=== PATIENT | female | born 1930 | race Caucasian/White ===

== ENCOUNTER 2017-09-02 08:21 | Outpatient (CLI) | payer MEDICARE, OTHER | END 2017-09-02 08:22 | disposition home or self-care (01) | LOC: BICMAMMO 08:21 | PROVIDERS: ATTEND Internal Medicine | DX: Z12.31 Encounter for screening mammogram for malignant neoplasm of breast (principal); Z13.820 Encounter for screening for osteoporosis; Z12.89 Encounter for screening for malignant neoplasm of other sites; Z78.0 Asymptomatic menopausal state; M85.859 Other specified disorders of bone density and structure, unspecified thigh; M85.88 Other specified disorders of bone density and structure, other site; M47.896 Other spondylosis, lumbar region | CPT/HCPCS: 72100; 77063; 77067; 77080 ==

== ENCOUNTER 2018-09-04 09:07 | Outpatient (CLI) | payer MEDICARE ==
--- NOTE | 2018-09-04 09:47 | MMO ---
Bilateral MAMMO Bilat Screen [facility]. CLINICAL HISTORY: Patient is 88 years old and is seen for screening. The patient has no family history of breast cancer. The patient has no personal history of cancer. VIEWS: The views performed were: bilateral craniocaudal with tomosynthesis and bilateral mediolateral oblique with tomosynthesis. FILMS COMPARED: The present examination has been compared to prior imaging studies performed at [facility] on 09/02/2017, and at [facility] on 05/24/2016. MAMMOGRAM FINDINGS: The breasts are almost entirely fat. There are benign appearing calcifications seen in both breasts. There are no suspicious masses, suspicious calcifications, or new areas of architectural distortion. IMPRESSION: THERE IS NO MAMMOGRAPHIC EVIDENCE OF MALIGNANCY. A ROUTINE FOLLOW-UP MAMMOGRAM IN 1 YEAR IS RECOMMENDED. THE RESULTS OF THIS EXAM WERE SENT TO THE PATIENT. ACR BI-RADS Category 2 - Benign finding MAMMOGRAPHY NOTE: 1. A negative mammogram report should not delay a biopsy if a dominant of clinically suspicious mass is present. 2. Approximately 10% to 15% of breast cancers are not detected by mammography. 3. Adenosis and dense breasts may obscure an underlying neoplasm.
== END 2018-09-04 09:08 | disposition home or self-care (01) ==
LOC: BICMAMMO 09:07
PROVIDERS: ATTEND Internal Medicine
DX: Z12.31 Encounter for screening mammogram for malignant neoplasm of breast (principal)
CPT/HCPCS: 77063; 77067

== ENCOUNTER 2018-10-20 08:06 | Outpatient (CLI) | payer MEDICARE, OTHER ==
--- NOTE | 2018-10-20 08:35 | ULT ---
US Abdominal Aorta History: Aortic aneurysm screening Comparison: None. Findings: Real-time grayscale, color, and spectral analysis of the abdominal aorta was performed. Extensive atherosclerotic plaque throughout the aorta. Proximal aorta measures up to 1.9 cm. The mid aorta measures up to 1.9 cm. The distal aorta measures up to 1.7 cm. No dilatation of the common iliac arteries. Impression: Extensive atherosclerotic plaque without aneurysmal dilatation.
== END 2018-10-20 08:07 | disposition home or self-care (01) ==
LOC: BICULT 08:06
PROVIDERS: ATTEND Internal Medicine
DX: Z13.6 Encounter for screening for cardiovascular disorders (principal); I70.0 Atherosclerosis of aorta
CPT/HCPCS: 76775

== ENCOUNTER 2019-10-05 08:29 | Outpatient (CLI) | payer MEDICARE, OTHER ==
--- NOTE | 2019-10-05 09:02 | BD ---
EXAM: DEXA bone density examination HISTORY: 89-year-old postmenopausal female for screening COMPARISON: None FINDINGS: L1--bone mineral density 0.893 g/sq cm; T score -0.9 L2--bone mineral density 1.071 g/sq cm; T score 0.4 L3--bone mineral density 1.052 g/sq cm; T score -0.3 L4--bone mineral density 0.993 g/sq cm; T score -0.6 Total L1-L4--bone mineral density 1.003 g/sq cm; T score -0.4 Left femoral neck--bone mineral density0.653; T score -1.8 Total proximal left femur--bone mineral density 0.722; T score -1.8 IMPRESSION: Osteopenia. This patient has a 10 year WHO fracture risk of a major osteoporotic fracture of 13% and of a hip fracture of 4.0%.
--- NOTE | 2019-10-05 09:03 | MMO ---
Bilateral MAMMO Bilat Screen [facility]. CLINICAL HISTORY: Patient is 89 years old and is seen for screening. The patient has no family history of breast cancer. The patient has no personal history of cancer. VIEWS: The views performed were: bilateral craniocaudal with tomosynthesis and bilateral mediolateral oblique with tomosynthesis. FILMS COMPARED: The present examination has been compared to prior imaging studies performed at [facility] on 09/02/2017 and 09/04/2018, and at [facility] on 05/24/2016. This study has been interpreted with the assistance of computer-aided detection. MAMMOGRAM FINDINGS: The breasts are almost entirely fat. There are stable benign appearing calcifications seen in both breasts. There are no suspicious masses, suspicious calcifications, or new areas of architectural distortion. IMPRESSION: THERE IS NO MAMMOGRAPHIC EVIDENCE OF MALIGNANCY. A ROUTINE FOLLOW-UP MAMMOGRAM IN 1 YEAR IS RECOMMENDED. THE RESULTS OF THIS EXAM WERE SENT TO THE PATIENT. ACR BI-RADS Category 2 - Benign finding MAMMOGRAPHY NOTE: 1. A negative mammogram report should not delay a biopsy if a dominant of clinically suspicious mass is present. 2. Approximately 10% to 15% of breast cancers are not detected by mammography. 3. Adenosis and dense breasts may obscure an underlying neoplasm. Reported by: FITO OLSON MD Electonically Signed: [id number]
== END 2019-10-05 08:30 | disposition home or self-care (01) ==
LOC: BICMAMMO 08:29
PROVIDERS: ATTEND Internal Medicine
DX: Z12.31 Encounter for screening mammogram for malignant neoplasm of breast (principal); Z13.820 Encounter for screening for osteoporosis; M85.852 Other specified disorders of bone density and structure, left thigh; Z78.0 Asymptomatic menopausal state
CPT/HCPCS: 77063; 77067; 77080

== ENCOUNTER 2020-12-01 14:23 | Inpatient (IN) | payer MEDICARE ==
[2020-12-01 14:46] LABS: #Basophils 0.1 thou/uL (0.0-0.2); #Eosinphils 0.1 thou/uL (0.0-0.7); #Lymphocytes 0.9 thou/uL (1.20-3.40); #Monocytes 0.6 thou/uL (0.11-0.59); #Neutrophils 3.7 thou/uL (1.40-6.50); %Basophils 1.6 % (0.0-1.0); %Eosinophils 1.5 % (0.0-10.0); %Lymphocytes 16.7 % (21.0-51.0); %Monocytes 11.5 % (0.0-10.0); %Neutrophils 68.7 % (42.0-75.0); Hemoglobin 13.6 g/dL (12.0-16.0); Mean Corpuscular Volume 90.6 fL (78.0-98.0); Mean Platelet Volume 9.2 fL (7.4-10.4); Platelet Count 166 thou/uL (130-400); RBC Distribution Width 12.8 % (11.5-14.5); White Blood Cell (WBC) Count 5.4 thou/uL (4.8-10.8)
[2020-12-01] MEDS ORDERED: Atropine Sulfate 1 mg/10 ml Syringe ONE (15:04)
[2020-12-01 15:07] LABS: ALT (SGPT) 251 U/L (8-55); AST (SGOT) 410 U/L (5-34); Albumin 3.7 g/dL (3.4-4.8); Alkaline Phosphatase 118 U/L (40-110); Anion Gap 14 mmol/L (10-20); BUN (Urea Nitrogen) 22 mg/dL (9.8-20.1); Bilirubin, Total 0.7 mg/dL (0.2-1.2); Calc. Creatinine Clearance 0 mL/min (70-130); Calcium 9.1 mg/dL (7.8-10.44); Carbon Dioxide 26 mmol/L (23-31); Chloride 99 mmol/L (98-107); Glucose 136 mg/dL (83-110); Potassium 6.1 mmol/L (3.5-5.1); Protein, Total 6.7 g/dL (5.8-8.1); Sodium 133 mmol/L (136-145)
[2020-12-01] MEDS ORDERED: DOPamine 400 MG/D5W 250 ML 250 ML ONE (15:17)
[2020-12-01] MEDS ORDERED: Insulin Regular 300 UNITS/3 ML VIAL ONE (15:18)
[2020-12-01] MEDS ORDERED: Calcium Chloride 1 GM/10 ML Abboject SYRINGE ONE (15:18)
[2020-12-01] MEDS ORDERED: Dextrose 50% Abboject 50 ML SYRINGE ONE (15:18)
[2020-12-01] MEDS ORDERED: Albuterol Sulfate 2.5 mg/3 ml Neb ONE (15:33)
[2020-12-01] MEDS ORDERED: Ondansetron PF 4 MG/2 ML Vial ONE (15:54)
[2020-12-01] MEDS ORDERED: Acetaminophen 325 MG TAB PO PRN (15:55)
[2020-12-01] MEDS ORDERED: Ondansetron PF 4 MG/2 ML Vial IVP PRN (15:55)
[2020-12-01 16:56] LABS: SARS-CoV-2 NAA Rapid Test Not Detected (NotDetected)
[2020-12-01 18:09] LABS: Troponin I Less than 0.010 ng/mL (< 0.028)
[2020-12-01 18:19] LABS: Anion Gap 10 mmol/L (10-20); BUN (Urea Nitrogen) 23 mg/dL (9.8-20.1); Calc. Creatinine Clearance 13 mL/min (70-130); Carbon Dioxide 25 mmol/L (23-31); Chloride 102 mmol/L (98-107); Glucose 205 mg/dL (83-110); Potassium 4.8 mmol/L (3.5-5.1); Sodium 132 mmol/L (136-145)
[2020-12-01 18:58] LABS: Bacteria/HPF 1+ HPF (None Seen); Bilirubin Negative (Negative); Blood, Urine Negative (Negative); Clarity Turbid (Clear); Glucose, Urine (Dipstick) 200 mg/dL (Negative); Ketone, Urine Negative (Negative); Leukocyte Negative Leu/uL (Negative); Nitrite Negative (Negative); Protein, Urine (Dipstick) 30 mg/dL (Neg-Trace); RBC/HPF 0-3 HPF (0-3); Specific Gravity, Urine 1.014 (1.002-1.036); Squamous Epithelial 0-3 HPF (0-3); Urobilinogen Normal mg/dL (Less than 2); WBC/HPF 0-3 HPF (0-3); pH, Urine 5.5 (5.0-9.0)
[2020-12-01] MEDS: Sodium Chloride 0.9% 1,000 ML IV SCH ×2 (20:00→23:56)
[2020-12-01] MEDS ORDERED: Famotidine/PF 20 mg/2ml Vial SLOW IVP SCH (21:00)
[2020-12-01 21:28] LABS: Troponin I 0.016 ng/mL (< 0.028)
[2020-12-01] MEDS: DOPamine 400 MG/D5W 250 ML 250 ML IVPB SCH (23:55)
[2020-12-02 00:45] VITALS: BMI 26.2
[2020-12-02] MEDS ORDERED: traMADol HCl 50 MG TAB PO SCH (00:45)
[2020-12-02 05:25] LABS: Anion Gap 10 mmol/L (10-20); BUN (Urea Nitrogen) 22 mg/dL (9.8-20.1); Calc. Creatinine Clearance 35 mL/min (70-130); Calcium 9.6 mg/dL (7.8-10.44); Carbon Dioxide 26 mmol/L (23-31); Chloride 102 mmol/L (98-107); Glucose 117 mg/dL (83-110); Potassium 4.7 mmol/L (3.5-5.1); Sodium 133 mmol/L (136-145)
[2020-12-02 05:32] LABS: Band 1 % (5-11); Eosinophils 1 % (0-10); Hemoglobin 12.4 g/dL (12.0-16.0); Lymphocytes 11 % (21-51); MDiff Complete? YES; Mean Corpuscular HGB CONC 33.5 g/dL (32.0-36.0); Mean Corpuscular Hemoglobin 30.2 pg (27.0-31.0); Mean Corpuscular Volume 90.1 fL (78.0-98.0); Monocytes 6 % (0-10); Neutrophil 78 % (42-75); Platelet Count 154 thou/uL (130-400); Platelet Morphology Comment Appears Adequate; RBC Distribution Width 12.6 % (11.5-14.5); RBC Morphology Normal; Reactive Lymphocytes 3 % (0-10); Red Blood Cell (RBC) Count 4.11 mill/uL (4.20-5.40); White Blood Cell (WBC) Count 9.2 thou/uL (4.8-10.8)
[2020-12-02 12:06] LABS: ALT (SGPT) 163 U/L (8-55); AST (SGOT) 121 U/L (5-34); Albumin 3.6 g/dL (3.4-4.8); Alkaline Phosphatase 90 U/L (40-110); Bilirubin, Direct 0.3 mg/dL (0.1-0.3); Bilirubin, Total 0.7 mg/dL (0.2-1.2); Protein, Total 6.8 g/dL (5.8-8.1)
[2020-12-02] MEDS: Sodium Chloride 0.9% 1,000 ML IV SCH (16:12)
[2020-12-02] MEDS: Famotidine/PF 20 mg/2ml Vial SLOW IVP SCH (20:36)
[2020-12-03] MEDS: DOPamine 400 MG/D5W 250 ML 250 ML IVPB SCH (00:42)
[2020-12-03] MEDS: Sodium Chloride 0.9% 1,000 ML IV SCH ×4 (00:43→21:11)
[2020-12-03 10:13] LABS: ALT (SGPT) 117 U/L (8-55); AST (SGOT) 66 U/L (5-34); Albumin 3.6 g/dL (3.4-4.8); Alkaline Phosphatase 88 U/L (40-110); Anion Gap 13 mmol/L (10-20); BUN (Urea Nitrogen) 14 mg/dL (9.8-20.1); Bilirubin, Total 0.7 mg/dL (0.2-1.2); Calc. Creatinine Clearance 46 mL/min (70-130); Calcium 8.7 mg/dL (7.8-10.44); Carbon Dioxide 23 mmol/L (23-31); Chloride 107 mmol/L (98-107); Globulin 2.9 g/dL (2.4-3.5); Glucose 132 mg/dL (83-110); Potassium 4.2 mmol/L (3.5-5.1); Protein, Total 6.5 g/dL (5.8-8.1); Sodium 139 mmol/L (136-145)
[2020-12-03] MEDS ORDERED: Cefepime 1 GM in Sodium Chloride 0.9% 100 ML IVPB SCH (21:00)
[2020-12-03 22:12] LABS: Bacteria/HPF None Seen HPF (None Seen); Bilirubin Negative (Negative); Blood, Urine Trace (Negative); Clarity Clear (Clear); Glucose, Urine (Dipstick) Normal (Negative); Ketone, Urine Negative (Negative); Leukocyte Negative Leu/uL (Negative); Mucous/LPF Rare LPF (<2+); Nitrite Negative (Negative); Protein, Urine (Dipstick) Negative (Neg-Trace); RBC/HPF 0-3 HPF (0-3); Specific Gravity, Urine 1.014 (1.002-1.036); Squamous Epithelial 0-3 HPF (0-3); Urobilinogen Normal mg/dL (Less than 2); pH, Urine 5.5 (5.0-9.0)
[2020-12-03 22:13] LABS: Urine Culture Reflex Yes Yes
[2020-12-03] MEDS: Cefepime 1 GM in Sodium Chloride 0.9% 100 ML IVPB SCH (22:18)
[2020-12-03] MEDS: Vancomycin 1 GM in Premix Bag 1 BAG IVPB SCH (22:18)
[2020-12-03] MEDS: Famotidine/PF 20 mg/2ml Vial SLOW IVP SCH (22:19)
[2020-12-04 05:06] LABS: Anion Gap 10 mmol/L (10-20); BUN (Urea Nitrogen) 16 mg/dL (9.8-20.1); Calc. Creatinine Clearance 53 mL/min (70-130); Calcium 8.1 mg/dL (7.8-10.44); Carbon Dioxide 24 mmol/L (23-31); Chloride 110 mmol/L (98-107); Glucose 87 mg/dL (83-110); Potassium 3.9 mmol/L (3.5-5.1); Sodium 140 mmol/L (136-145)
[2020-12-04] MEDS: Sodium Chloride 0.9% 1,000 ML IV SCH (06:45)
[2020-12-04] MEDS: Amlodipine 5 MG TAB PO SCH (10:11)
[2020-12-04] MEDS ORDERED: Clindamycin/D5W 600 mg/50 ml Premix Bag ONE (14:52)
[2020-12-04] MEDS ORDERED: Vancomycin HCl 500 MG VIAL ONE (14:52)
[2020-12-04] MEDS ORDERED: Levofloxacin 500 mg/D5W 100 ml Premix Bag ONE (15:08)
[2020-12-04] MEDS ORDERED: Lidocaine 1% (PF) 30 ML VIAL ONE ×2 (15:53→16:23)
[2020-12-04] MEDS ORDERED: Midazolam HCl 2 mg/2 ml Vial ONE (16:07)
[2020-12-04] MEDS ORDERED: Fentanyl 100 MCG/2 ML VIAL ONE (16:07)
[2020-12-04] MEDS: Acetaminophen/Codeine 30-300mg Tablet PO PRN ×2 (18:46→23:03)
[2020-12-04] MEDS: Vancomycin 1 GM in Premix Bag 1 BAG IVPB SCH (20:40)
[2020-12-04] MEDS: Cefepime 1 GM in Sodium Chloride 0.9% 100 ML IVPB SCH (20:41)
[2020-12-04] MEDS: Flecainide 50 MG TAB PO SCH (20:42)
[2020-12-04] MEDS: Clindamycin 150 MG CAP PO SCH (23:03)
[2020-12-04] MEDS: Famotidine/PF 20 mg/2ml Vial SLOW IVP SCH (23:05)
[2020-12-05 05:00] LABS: Anion Gap 9 mmol/L (10-20); BUN (Urea Nitrogen) 13 mg/dL (9.8-20.1); Calc. Creatinine Clearance 59 mL/min (70-130); Calcium 8.4 mg/dL (7.8-10.44); Carbon Dioxide 26 mmol/L (23-31); Chloride 106 mmol/L (98-107); Glucose 83 mg/dL (83-110); Potassium 3.9 mmol/L (3.5-5.1); Sodium 137 mmol/L (136-145)
[2020-12-05 05:03] LABS: Eosinophils 1 % (0-10); Hemoglobin 10.6 g/dL (12.0-16.0); Hypochromia SLIGHT = 6-15 cells (100X) (0-5/hpf); Lymphocytes 15 % (21-51); MDiff Complete? YES; Mean Corpuscular HGB CONC 32.3 g/dL (32.0-36.0); Mean Corpuscular Hemoglobin 29.4 pg (27.0-31.0); Mean Platelet Volume 9.2 fL (7.4-10.4); Monocytes 10 % (0-10); Neutrophil 73 % (42-75); Platelet Count 120 thou/uL (130-400); Platelet Morphology Comment Appears Adequate; RBC Distribution Width 12.4 % (11.5-14.5); Reactive Lymphocytes 1 % (0-10); Red Blood Cell (RBC) Count 3.62 mill/uL (4.20-5.40); White Blood Cell (WBC) Count 5.7 thou/uL (4.8-10.8)
[2020-12-05] MEDS: Clindamycin 150 MG CAP PO SCH ×3 (07:24→20:45)
[2020-12-05] MEDS: Amlodipine 5 MG TAB PO SCH (09:08)
[2020-12-05] MEDS: Flecainide 50 MG TAB PO SCH ×2 (09:09→20:44)
[2020-12-05] MEDS: Acetaminophen/Codeine 30-300mg Tablet PO PRN ×2 (09:16→20:44)
[2020-12-05 19:27] LABS: Vancomycin, Trough 5.9 ug/mL
[2020-12-05] MEDS: Cefepime 1 GM in Sodium Chloride 0.9% 100 ML IVPB SCH (20:44)
[2020-12-05] MEDS: Famotidine/PF 20 mg/2ml Vial SLOW IVP SCH (20:45)
[2020-12-06] MEDS: Clindamycin 150 MG CAP PO SCH ×2 (06:46→13:06)
[2020-12-06] MEDS: Flecainide 50 MG TAB PO SCH (08:55)
[2020-12-06 11:19] VITALS: BP 144/75
[2020-12-06 13:04] VITALS: TEMP 97.7
[2020-12-06] MEDS: Acetaminophen/Codeine 30-300mg Tablet PO PRN (13:07)
== END 2020-12-06 15:23 | disposition home or self-care (01) | DRG 242 ==
LOC: ERS 14:23 → ERHOLD 15:33 → IMCU/EMU 23:46
PROVIDERS: ADMIT Internal Medicine; ATTEND Internal Medicine
PROC: 06HY33Z Insertion of Infusion Device into Lower Vein, Percutaneous Approach (ICD-10-PCS; 2020-12-01)
PROC: 0JH606Z Insertion of Pacemaker, Dual Chamber into Chest Subcutaneous Tissue and Fascia, Open Approach (ICD-10-PCS; principal; 2020-12-04)
PROC: 02H63JZ Insertion of Pacemaker Lead into Right Atrium, Percutaneous Approach (ICD-10-PCS; 2020-12-04)
PROC: 02HK3JZ Insertion of Pacemaker Lead into Right Ventricle, Percutaneous Approach (ICD-10-PCS; 2020-12-04)
DX: I49.5 Sick sinus syndrome (principal); R57.0 Cardiogenic shock; N17.9 Acute kidney failure, unspecified; Z66 Do not resuscitate; N39.0 Urinary tract infection, site not specified; J95.811 Postprocedural pneumothorax; K76.1 Chronic passive congestion of liver; N18.30 Chronic kidney disease, stage 3 unspecified; E87.5 Hyperkalemia; I48.0 Paroxysmal atrial fibrillation; Z20.822 Contact with and (suspected) exposure to COVID-19; T46.2X5A Adverse effect of other antidysrhythmic drugs, initial encounter; I12.9 Hypertensive chronic kidney disease with stage 1 through stage 4 chronic kidney disease, or unspecified chronic kidney disease; Z90.710 Acquired absence of both cervix and uterus; Z88.0 Allergy status to penicillin; Z91.013 Allergy to seafood
CPT/HCPCS: 33208; 36415; 36556; 51701; 71045; 71046; 76770; 76942; 80048; 80053; 80076; 80202; 81001; 81003; 81015; 83605; 84484; 85025; 87040; 87086; 93005; 93010; 96365; 96366; 96374; 96375; 99152; 99153; 99292; C1785; C1898; J0461; J0692; J1265; J1815; J1956; J2001; J2250; J2405; J3010; J3370; J3490; J7050; J7611; S0028; U0002